=== PATIENT | male | born 1985 | race Caucasian/White ===

== ENCOUNTER 2019-10-22 23:19 | Emergency (ER) | payer SELFPAY ==
[~2019-10-22] VITALS: Ht 170.2 cm; Wt 66.0 kg
[2019-10-22 23:26] VITALS: BP 159/95
== END 2019-10-22 23:55 | disposition left against medical advice (07) ==
LOC: ER 23:19
DX: Z53.21 Procedure and treatment not carried out due to patient leaving prior to being seen by health care provider (principal)